=== PATIENT | male | born 1935 | race Hispanic/Latino ===

== ENCOUNTER 2022-04-22 13:52 | Observation (INO) | payer MEDICARE ==
[~2022-04-22] VITALS: Ht 167.6 cm; Wt 72.6 kg
[2022-04-22] MEDS ORDERED: SODIUM CHLORIDE FLUSH 10 ML SYR INJ PRN (16:15)
[2022-04-22 16:41] LABS: BASOPHILS % 0.4 % (0.0-1.0); EOSINOPHILS # (AUTO) 0.2 (0.0-0.4); EOSINOPHILS % 2.7 % (0.0-6.0); HEMATOCRIT 43.9 % (38.2-49.6); HEMOGLOBIN 14.2 g/dL (14.0-18.0); LYMPHOCYTES # (AUTO) 1.9 (1.0-3.2); LYMPHOCYTES % 22.7 % (18.0-39.1); MEAN CORPUSCULAR HEMOGLOBIN 31.5 pg (28-32); MEAN CORPUSCULAR HGB CONC 32.3 g/dL (31-35); MEAN CORPUSCULAR VOLUME 97.3 fL (81-99); MONOCYTES # (AUTO) 0.6 (0.2-0.8); MONOCYTES % 6.7 % (4.4-11.3); NEUTROPHILS # (AUTO) 5.5 (2.1-6.9); NEUTROPHILS % 67.3 % (38.7-80.0); PLATELET COUNT 225 x10e3/uL (140-360); RED BLOOD COUNT 4.51 x10e6/uL (4.3-5.7); RED CELL DISTRIBUTION WIDTH 12.6 % (11.7-14.4)
[2022-04-22] MEDS ORDERED: ONDANSETRON HCL INJ 2MG/ML 2ML 2 MG/ML VIAL IV STA (16:43)
[2022-04-22] MEDS ORDERED: Morphine 2mg Syringe 2 MG/ML SYR IV ONE (16:45)
[2022-04-22 17:01] LABS: ALBUMIN 3.8 g/dL (3.5-5.0); ANION GAP 16.2 mmol/L (8-16); CALCIUM 8.8 mg/dL (8.4-10.2); CREATININE, SERUM 0.86 mg/dL (0.72-1.25); POTASSIUM 4.2 mmol/L (3.5-5.1)
[2022-04-22] MEDS ORDERED: SODIUM CHLORIDE 0.9% 1000ML 1,000 ML ONE (18:37)
[2022-04-22 20:00] VITALS: BP 134/65
[2022-04-22] MEDS ORDERED: HYDROCODONE/APAP 10MG-325MG TAB PO PRN (20:00)
[2022-04-22 20:01] VITALS: BP 134/65
[2022-04-22 20:08] VITALS: BP 134/65
[2022-04-22] MEDS: KETOROLAC TROMETHAMINE 30 MG/ML VIAL IV PRN (20:30)
[2022-04-23] VITALS (7 sets, daily range): BP systolic 126–153; BP diastolic 64–86
[2022-04-23] MEDS: KETOROLAC TROMETHAMINE 30 MG/ML VIAL IV PRN (02:50)
[2022-04-23] MEDS ORDERED: ACETAMINOPHEN/CODEINE 300MG - 30MG TAB PO PRN (08:00)
[2022-04-23] MEDS ORDERED: ONDANSETRON HCL INJ 2MG/ML 2ML 2 MG/ML VIAL IV PRN (08:00)
[2022-04-23] MEDS: ACETAMINOPHEN 325 MG TAB PO SCH ×2 (09:00→21:00)
[2022-04-23] MEDS ORDERED: ATORVASTATIN CA20 MG PO (10:19)
[2022-04-23] MEDS ORDERED: METFORMIN HCL500 MG PO (10:19)
[2022-04-23] MEDS ORDERED: HYDROCODONE/APAP 5MG-325MG TAB PO PRN (14:00)
[2022-04-23] MEDS ORDERED: HYDROCODONE/APAP 10MG-325MG TAB PO PRN (14:00)
[2022-04-23] MEDS ORDERED: ENOXAPARIN SOD INJ 40 MG/0.4 ML SYR SC SCH (17:00)
[2022-04-23] MEDS: FAMOTIDINE 20 MG TAB PO SCH (17:58)
[2022-04-24 00:48] VITALS: BP 150/73
[2022-04-24 04:59] VITALS: BP 143/79
[2022-04-24 08:00] VITALS: BP 158/73
[2022-04-24 08:01] VITALS: BP 142/73
[2022-04-24] MEDS ORDERED: DOCUSATE SODIUM LIQD 100 MG/10 ML UDC NG SCH (09:00)
[2022-04-24] MEDS: FAMOTIDINE 20 MG TAB PO SCH (10:10)
[2022-04-24] MEDS: ACETAMINOPHEN 325 MG TAB PO SCH (10:11)
[2022-04-24 11:43] VITALS: BP 158/73
[2022-04-24 15:30] VITALS: BP 143/72
== END 2022-04-24 16:00 | disposition home or self-care (01) ==
LOC: ER 14:10 → ERHOLD 16:08 → MED/SURG 18:38 → MED/SURG3 22:48
PROVIDERS: ADMIT Internal Medicine; ATTEND Internal Medicine
DX: M48.061 Spinal stenosis, lumbar region without neurogenic claudication (principal); K21.9 Gastro-esophageal reflux disease without esophagitis; K57.30 Diverticulosis of large intestine without perforation or abscess without bleeding; E11.9 Type 2 diabetes mellitus without complications; Z20.822 Contact with and (suspected) exposure to COVID-19; M25.559 Pain in unspecified hip; M51.26 Other intervertebral disc displacement, lumbar region; Z74.09 Other reduced mobility
CPT/HCPCS: 36415; 72131; 72192; 73502; 80053; 85025; 97116 ×2; 97162; 97530 ×2; 99251; 99284; G0378 ×3; J1650; J1885 ×2; J2270; J2405; J7030; U0002